=== PATIENT | female | born 2000 | race Caucasian/White ===

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

== ENCOUNTER 2021-03-19 19:15 | Emergency (ER) | payer OTHER ==
[~2021-03-19] VITALS: Ht 162.5 cm; Wt 45.4 kg
[~2021-03-19 19:15] MED LIST changes: +IBU800 MG PO; +TYLENOL325 M1 PO
== END 2021-03-19 20:47 | disposition home or self-care (01) ==
LOC: ED 19:15
DX: S81.811A Laceration without foreign body, right lower leg, initial encounter (principal); Z79.899 Other long term (current) drug therapy; X58.XXXA Exposure to other specified factors, initial encounter; Y93.89 Activity, other specified; Y92.89 Other specified places as the place of occurrence of the external cause; Y99.8 Other external cause status

== ENCOUNTER → 2021-04-16 | Outpatient (CLI) | payer OTHER ==
[~2021-04-16] MED LIST changes: +AMOXICILLIN500 M2 PO; +IBUPROFEN600 MG PO
== END | disposition home or self-care (01) ==
LOC: LAB 17:24
PROVIDERS: ATTEND Internal Medicine
DX: Z11.3 Encounter for screening for infections with a predominantly sexual mode of transmission (principal); M40.46 Postural lordosis, lumbar region; M54.2 Cervicalgia

== ENCOUNTER 2021-05-08 14:16 | Emergency (ER) | payer OTHER ==
[~2021-05-08] VITALS: Wt 46.7 kg
[~2021-05-08 14:16] MED LIST changes: -AMOXICILLIN500 M2 PO; -IBUPROFEN600 MG PO
[2021-05-08] MEDS ORDERED: AMOXICILLIN500 M2 PO (16:21)
[2021-05-08] MEDS ORDERED: IBUPROFEN600 MG PO (16:21)
== END 2021-05-08 16:40 | disposition home or self-care (01) ==
LOC: ED 14:16
DX: K04.7 Periapical abscess without sinus (principal); K02.9 Dental caries, unspecified

== ENCOUNTER 2023-08-01 12:52 | Emergency (ER) | payer OTHER ==
[~2023-08-01] VITALS: Ht 162.5 cm
[~2023-08-01 12:52] MED LIST changes: +AMOXICILLIN500 M2 PO; +IBUPROFEN600 MG PO
[2023-08-01 13:54] LABS: HEMATOCRIT 42.8 % (37.0-47.0); MEAN CELL VOLUME 88.8 fl (81.0-99.0); MEAN CORPUSCULAR HGB 28.8 pg (27.0-31.0); MEAN CORPUSCULAR HGB CONC 32.5 g/dl (33.0-37.0); MEAN PLATELET VOLUME 9.5 fl (9.6-12.3); PLATELET COUNT AUTOMATED 269 10*3/uL (130-400); RED BLOOD COUNT 4.82 10*6/uL (4.10-5.10); RED CELL DISTRI WIDTH 14.4 % (0-14.5); WHITE BLOOD COUNT 6.6 10*3/uL (4.8-10.8)
[2023-08-01 13:57] LABS: MANUAL DIFF REFLEX YES
[2023-08-01 14:16] LABS: ALKALINE PHOSPHATASE 71 U/L (46-116); CHLORIDE 106 mmol/L (98-107); POTASSIUM 3.9 mmol/L (3.4-5.1); SGPT/ALT 20 U/L (5-49); TOTAL PROTEIN 7.3 gm/dL (6.0-8.0)
[2023-08-01 14:19] LABS: PLATELET SUFFICIENCY NORMAL (NORMAL); TOTAL CELLS COUNTED 100 #CELLS
[2023-08-01 14:25] LABS: BUN < 5 mg/dl (9-23)
[2023-08-01] MEDS ORDERED: DEXAMETHASONE6 MG PO (15:00)
== END 2023-08-01 15:15 | disposition home or self-care (01) ==
LOC: ED 12:52
PROVIDERS: Physician Assistant Medical
DX: U07.1 COVID-19 (principal); Z91.041 Radiographic dye allergy status; Z98.890 Other specified postprocedural states

== ENCOUNTER 2024-05-08 20:43 | Emergency (ER) | payer OTHER ==
[~2024-05-08] VITALS: Ht 162.5 cm; Wt 53.1 kg
[~2024-05-08 20:43] MED LIST changes: +DEXAMETHASONE6 MG PO
== END 2024-05-08 22:59 | disposition home or self-care (01) ==
LOC: ED 20:43
DX: O26.892 Other specified pregnancy related conditions, second trimester (principal); R04.2 Hemoptysis; Z3A.17 17 weeks gestation of pregnancy; Z91.041 Radiographic dye allergy status; Z98.890 Other specified postprocedural states

== ENCOUNTER 2024-05-24 22:40 | Emergency (ER) | payer OTHER ==
[~2024-05-24] VITALS: Ht 160 cm; Wt 53.1 kg
[2024-05-24] MEDS ORDERED: PRENATA CHEWAB1 EACH PO (22:50)
[2024-05-24] MEDS ORDERED: ACETAMINOPHEN 325 MG TAB PO ONE (23:00)
[2024-05-24 23:36] LABS: BILIRUBIN Negative (Negative); BLOOD Negative (Negative); CLARITY Clear (Clear); COLOR Yellow (Yellow); GLUCOSE Negative (Negative); KETONE Negative (Negative); LEUKO ESTERASE Trace (Negative); NITRITE Negative (Negative); SPECIFIC GRAVITY <= 1.005 (1.001-1.030); UROBILINOGEN 0.2 E.U./dl (0.0-1.0)
[2024-05-24 23:49] LABS: BACTERIA 1+; EPITHELIAL CELLS 41-50
== END 2024-05-25 00:16 | disposition home or self-care (01) ==
LOC: ED 22:40
PROVIDERS: Internal Medicine
DX: O26.892 Other specified pregnancy related conditions, second trimester (principal); M54.9 Dorsalgia, unspecified; Z91.041 Radiographic dye allergy status; Z98.890 Other specified postprocedural states; Z3A.20 20 weeks gestation of pregnancy

== ENCOUNTER 2024-06-23 19:04 | Emergency (ER) | payer OTHER ==
[~2024-06-23] VITALS: Ht 167.6 cm; Wt 70.3 kg
[~2024-06-23 19:04] MED LIST changes: +PRENATA CHEWAB1 EACH PO
[2024-06-23 20:18] LABS: BASO % 0.2 % (0.0-1.0); EOS % 0.5 % (1.0-4.0); HEMATOCRIT 37.1 % (37.0-47.0); LYMPH # 1.4 10*3/uL (1.3-4.4); MEAN CELL VOLUME 94.4 fl (81.0-99.0); MEAN CORPUSCULAR HGB 31.3 pg (27.0-31.0); MEAN CORPUSCULAR HGB CONC 33.2 g/dl (33.0-37.0); MEAN PLATELET VOLUME 8.9 fl (9.6-12.3); MONO # 0.9 10*3/uL (0.1-1.0); NEUT % 71.1 % (47.0-73.0); PLATELET COUNT AUTOMATED 199 10*3/uL (130-400); RED BLOOD COUNT 3.93 10*6/uL (4.10-5.10); RED CELL DISTRI WIDTH 12.5 % (0-14.5); WHITE BLOOD COUNT 8.4 10*3/uL (4.8-10.8)
[2024-06-23 20:43] LABS: ALKALINE PHOSPHATASE 67 U/L (46-116); CHLORIDE 105 mmol/L (98-107); POTASSIUM 3.5 mmol/L (3.4-5.1); SGPT/ALT 21 U/L (5-49); TOTAL PROTEIN 6.5 gm/dL (6.0-8.0)
[2024-06-23 20:45] LABS: BUN < 5 mg/dl (9-23)
[2024-06-23] MEDS ORDERED: AMOX-CLAV 875-1 EACH PO (20:55)
[2024-06-23] MEDS ORDERED: Amoxicillin/Clavulanate Pota 875 MG TAB PO ONE (20:55)
== END 2024-06-23 21:05 | disposition home or self-care (01) ==
LOC: ED 19:04
DX: J18.9 Pneumonia, unspecified organism (principal); Z91.041 Radiographic dye allergy status; Z98.890 Other specified postprocedural states

== ENCOUNTER 2024-07-09 01:59 | Emergency (ER) | payer OTHER ==
[~2024-07-09] VITALS: Ht 160 cm; Wt 61.2 kg
[~2024-07-09 01:59] MED LIST changes: +AMOX-CLAV 875-1 EACH PO
== END 2024-07-09 03:31 | disposition left against medical advice (07) ==
LOC: ED 01:59
DX: O26.892 Other specified pregnancy related conditions, second trimester (principal); M25.562 Pain in left knee; M79.652 Pain in left thigh; Z91.041 Radiographic dye allergy status; Z98.890 Other specified postprocedural states; Z3A.26 26 weeks gestation of pregnancy; Z53.29 Procedure and treatment not carried out because of patient's decision for other reasons

== ENCOUNTER 2024-09-18 18:16 | Emergency (ER) | payer OTHER ==
[~2024-09-18] VITALS: Ht 160 cm; Wt 73.1 kg
[2024-09-18] MEDS ORDERED: PENICILLIN VK500 MG PO (19:07)
[2024-09-18] MEDS ORDERED: PENICILLIN V POTASSIUM 500 MG TAB PO ONE (19:10)
== END 2024-09-18 19:24 | disposition home or self-care (01) ==
LOC: ED 18:16
DX: K04.7 Periapical abscess without sinus (principal); Z91.041 Radiographic dye allergy status

== ENCOUNTER 2025-05-08 18:56 | Emergency (ER) | payer OTHER ==
[~2025-05-08] VITALS: Ht 160 cm; Wt 66.7 kg
[~2025-05-08 18:56] MED LIST changes: +PENICILLIN VK500 MG PO
[2025-05-08 20:00] LABS: BILIRUBIN Negative (Negative); BLOOD Negative (Negative); CLARITY Cloudy (Clear); COLOR Yellow (Yellow); KETONE Negative (Negative); LEUKO ESTERASE 2+ (Negative); NITRITE Negative (Negative); PH 8.0 (4.5-8.0); SPECIFIC GRAVITY 1.015 (1.001-1.030); UROBILINOGEN 1.0 E.U./dl (0.0-1.0)
[2025-05-08] MEDS ORDERED: Ondansetron Hydrochloride 4 MG/2 ML VIAL IV ONE (20:10)
[2025-05-08] MEDS ORDERED: SODIUM CHLORIDE 0.9% 1,000 ML IV ONE (20:10)
[2025-05-08 20:25] LABS: BASO # 0.0 10*3/uL (0.0-0.1); BASO % 0.2 % (0.0-1.0); EOS # 0.1 10*3/uL (0.0-0.4); EOS % 0.7 % (1.0-4.0); MEAN CELL VOLUME 91.5 fl (81.0-99.0); MEAN CORPUSCULAR HGB 29.3 pg (27.0-31.0); MEAN PLATELET VOLUME 9.2 fl (9.6-12.3); MONO # 0.9 10*3/uL (0.1-1.0); MONO % 8.0 % (3.0-9.0); NEUT # 8.2 10*3/uL (2.3-7.9); NEUT % 74.3 % (47.0-73.0); NUCLEATED RED BLOOD CELL 0.0 % (0.0-0.0); NUCLEATED RED BLOOD CELL 0.0 10*3/uL (0.0-0.0); PLATELET COUNT AUTOMATED 288 10*3/uL (130-400); RED CELL DISTRI WIDTH 13.0 % (0-14.5)
[2025-05-08 20:27] LABS: BACTERIA 2+; EPITHELIAL CELLS 31-40; MUCOUS 1+; RBC 0-2 rbc/hpf (0-2); WBC 21-30 wbc/hpf (0-5)
[2025-05-08 20:47] LABS: BUN < 5 mg/dl (9-23)
[2025-05-08] MEDS ORDERED: Sulfamethoxazole/Trimethopri 1 TAB TAB PO ONE (20:50)
[2025-05-08] MEDS ORDERED: Nitrofurantoin Monohydrate/N 100 MG CAP PO ONE (21:05)
[2025-05-08] MEDS ORDERED: MACROBID100 M1 PO (21:09)
[2025-05-08] MEDS ORDERED: Ondansetron4 MG PO (21:09)
[2025-05-08] MEDS ORDERED: SEPTDS PO (21:10)
[2025-05-20] MEDS ORDERED: CIPRO500 MG PO (14:41)
== END 2025-05-08 21:22 | disposition home or self-care (01) ==
LOC: ED 18:56
PROVIDERS: Nurse Practitioner Family
DX: N30.00 Acute cystitis without hematuria (principal); R11.2 Nausea with vomiting, unspecified

== ENCOUNTER 2025-05-19 16:03 | Emergency (ER) | payer OTHER ==
[~2025-05-19] VITALS: Ht 160 cm; Wt 52.6 kg
[~2025-05-19 16:03] MED LIST changes: +MACROBID100 M1 PO; +Ondansetron4 MG PO; +SEPTDS PO
[2025-05-19 18:24] LABS: BILIRUBIN Negative (Negative); BLOOD 3+ (Negative); CLARITY Turbid (Clear); COLOR Orange (Yellow); KETONE Negative (Negative); LEUKO ESTERASE 2+ (Negative); NITRITE Negative (Negative); PH 6.0 (4.5-8.0); SPECIFIC GRAVITY 1.015 (1.001-1.030); UROBILINOGEN 1.0 E.U./dl (0.0-1.0)
[2025-05-19 18:56] LABS: EPITHELIAL CELLS 21-30; WBC 41-50 wbc/hpf (0-5)
[2025-05-19 18:57] LABS: BACTERIA 4+; RBC 41-50 rbc/hpf (0-2)
[2025-05-19] MEDS ORDERED: Phenazopyridine Hydrochlorid2 100 MG TAB PO ONE (19:25)
[2025-05-19] MEDS ORDERED: IBUPROFEN 600 MG TAB PO ONE (19:25)
[2025-05-20] MEDS ORDERED: CIPRO500 MG PO (14:41)
== END 2025-05-19 19:45 | disposition home or self-care (01) ==
LOC: ED 16:03
PROVIDERS: Nurse Practitioner Family
DX: S29.011A Strain of muscle and tendon of front wall of thorax, initial encounter (principal); N39.0 Urinary tract infection, site not specified; R31.9 Hematuria, unspecified; N89.8 Other specified noninflammatory disorders of vagina; Z88.8 Allergy status to other drugs, medicaments and biological substances; X58.XXXA Exposure to other specified factors, initial encounter; Y93.89 Activity, other specified; Y92.89 Other specified places as the place of occurrence of the external cause; Y99.8 Other external cause status

== ENCOUNTER 2025-06-09 19:33 | Emergency (ER) | payer OTHER ==
[~2025-06-09] VITALS: Ht 160 cm; Wt 52.2 kg
[~2025-06-09 19:33] MED LIST changes: +CIPRO500 MG PO
[2025-06-09] MEDS ORDERED: [UNRECOGNIZED DRUG - OTHER] PO (19:40)
[2025-06-09] MEDS ORDERED: Dexamethasone Sodium Phospha 20 MG/5 ML VIAL IM ONE (21:10)
[2025-06-09] MEDS ORDERED: MEDROL DOSEPAK4 MG PO (21:17)
== END 2025-06-09 21:48 | disposition home or self-care (01) ==
LOC: ED 19:33
DX: B34.9 Viral infection, unspecified (principal); Z20.822 Contact with and (suspected) exposure to COVID-19; Z91.041 Radiographic dye allergy status

== ENCOUNTER 2025-09-23 18:20 | Emergency (ER) | payer OTHER ==
[~2025-09-23] VITALS: Ht 160 cm; Wt 68.5 kg
[~2025-09-23 18:20] MED LIST changes: +MEDROL DOSEPAK4 MG PO; +[UNRECOGNIZED DRUG - OTHER] PO
[2025-09-23] MEDS ORDERED: AMOX-CLAV 875-1 EACH PO (18:57)
[2025-09-23] MEDS ORDERED: Amoxicillin/Clavulanate Pota 875 MG TAB PO ONE (19:00)
== END 2025-09-23 19:10 | disposition home or self-care (01) ==
LOC: ED 18:20
DX: K02.9 Dental caries, unspecified (principal)